=== PATIENT | female | born 1970 | race Caucasian/White ===

== ENCOUNTER → 2017-02-15 | Day surgery (SDC) | payer BC, OTHER ==
[~2017-02-15] MED LIST: LIDOCAINE 1% PF 2 ML VIAL. ID; LIDOCAINE 2% PF Vial for OR 5 ML VIAL.; MIDAZOLAM HCL/PF 2 MG/2 ML VIAL. IV; ONDANSETRON PF 4 MG/2 ML VIAL.; PROPOFOL 40 ML IV; diphenhydrAMINE 50 MG/ML VIAL; fentaNYL PF VIAL 100 MCG/2 ML VIAL IV
[2017-02-15] MEDS: IV RINGERS,LACTATED 1000ML 1,000 ML IV (08:59)
== END | disposition home or self-care (01) ==
LOC: SURG 08:19
DX: K64.0 First degree hemorrhoids (principal); E03.9 Hypothyroidism, unspecified; F32.9 Major depressive disorder, single episode, unspecified; Z90.49 Acquired absence of other specified parts of digestive tract; Z90.710 Acquired absence of both cervix and uterus; Z86.010 Personal history of colon polyps
CPT/HCPCS: 45378; J1200; J2405; J2704